=== PATIENT | female | born 1965 | race African-American/Black ===

== ENCOUNTER → 2016-11-21 | Day surgery (SDC) | payer BC ==
[~2016-11-21] MED LIST: CHOLESTEROL MED; METFORMIN HCL500 M1 PO; SIMVASTATIN20 MG PO
--- NOTE | ~2016-11-21 | OR ---
Unit #: [id number] #: [id number] Patient: MOSES ARENAS [id number] [address] [place], [place] [address] [id number] MR#: [id number] NAME: MOSES ARENAS ROOM: Date of Procedure: 11/21/2016 Admission Date: 11/21/2016 Surgeon: Wagner Billingsley M.D. : 1965 Attending Physician: Wagner Billingsley M.D. Primary Care Physician: Tomeka Pineda OPERATIVE REPORT PREOPERATIVE DIAGNOSIS Colorectal cancer screening in an average-risk patient. PROCEDURE PERFORMED Colonoscopy up to cecum and terminal ileum with excellent preparation and good visualization. POSTOPERATIVE DIAGNOSES The patient had small internal hemorrhoids. Otherwise, completely normal examination up to cecum and terminal ileum. The quality of the prep was good. No polyps were seen. RECOMMENDATIONS Repeat colonoscopy in 10 years. SEDATION USED MAC. DESCRIPTION OF PROCEDURE Following detailed explanation of the potential risks and complications of a colonoscopy, namely perforation, bleeding, complication related to sedation, the patient was brought to GI lab and laid in the left lateral decubitus position. A digital rectal examination was performed, which was normal. Lubricated tip of the Olympus video colonoscope was inserted through the anus and advanced under direct vision. The scope was advanced past rectosigmoid into descending colon. No diverticula were noted in this area. The scope tip was then navigated all the way up to cecum with visualization of the ileocecal valve and the appendiceal orifice. Preparation was good with good visualization, and photodocumentation was obtained. Last several inches of terminal ileum also visualized after intubation of the ileocecal valve and appeared normal. Successive segments of the colonic mucosa were examined upon withdrawal and appeared unremarkable. There being no polyps, mass lesions, or AVMs. No diverticula were noted. The patient did have small internal hemorrhoids seen at the anal verge. The scope was then withdrawn. The patient was returned to the recovery area. He tolerated the procedure without any postprocedure complications. Dictated by... Wagner Billingsley M.D. Unit #: [id number] #: [id number] Patient: MOSES ARENAS HILDA/liane TD: 11/22/2016 06:20 JOB #: [id number] CC: Tomeka Pineda R.N. OPERATIVE REPORT Page 1 of 1 X Wagner Billingsley MD PROCEDURE OPERATIVE NOTE
== END | disposition home or self-care (01) ==
LOC: COPS 11-10 08:30
DX: Z12.11 Encounter for screening for malignant neoplasm of colon (principal); K64.8 Other hemorrhoids; E11.9 Type 2 diabetes mellitus without complications; E78.5 Hyperlipidemia, unspecified; Z98.51 Tubal ligation status; Z79.84 Long term (current) use of oral hypoglycemic drugs; Z98.890 Other specified postprocedural states; Z79.899 Other long term (current) drug therapy
CPT/HCPCS: 82947; J2250